=== PATIENT | female | born 1990 | race African-American/Black ===

== ENCOUNTER 2023-01-29 16:35 | Emergency (ER) | payer OTHER, BC, SELFPAY ==
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
[2023-01-29 16:42] VITALS: BP 150/84; PULSE 85; RESP 16; TEMP 36.8; O2SAT 100
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
[2023-01-29] MEDS: ACETAMINOPHEN 500 MG TABLET 1000 MG PO (16:55)
[2023-01-29] MEDS: CYCLOBENZAPRINE HCL 10 MG TABLET PO (16:55)
[2023-01-29] MEDS: NAPROXEN 500 MG TABLET PO (16:55)
[2023-01-29 18:55] LABS: Appearance Urine Cloudy (Clear); Bacteria Urine 1+ /hpf; Bilirubin Urine Negative (Negative); Blood Urine 2+ (Negative); Color Urine Yellow (Yellow); Glucose Urine UA Negative (Negative); Ketones Urine Negative (Negative); Leukocyte Esterase Ur Trace LEU/UL (Negative); Nitrate Urine Negative (Negative); Non Pathogenic Casts 0-2; Protein Urine Negative (Negative); RBC Urine 0-2 /hpf (0-2); Specific Grav Ur 1.022 (1.001-1.035); Squamous Epithelial Cell Urine Moderate /hpf (Few)
[2023-01-29 18:59] LABS: Add Urine Microscopic? YES
[2023-01-29 20:29] VITALS: BP 148/90; PULSE 77; RESP 18; O2SAT 100
== END 2023-01-29 20:31 | disposition home or self-care (01) ==
PROVIDERS: Nurse Practitioner Family; Emergency Provider Physician Assistant
DX: S16.1XXA Strain of muscle, fascia and tendon at neck level, initial encounter (principal); M43.8X5 Other specified deforming dorsopathies, thoracolumbar region; V48.5XXA Car driver injured in noncollision transport accident in traffic accident, initial encounter
CPT/HCPCS: 72072; 72100; 72125; 81001; 81025; 87086; 87088; 99284; A9270